=== PATIENT | female | born 1960 | race Caucasian/White ===

== ENCOUNTER → 2021-08-01 | Outpatient (CLI) | payer BC | LOC: MC.RAD 11:18 | DX: Z12.31 Encounter for screening mammogram for malignant neoplasm of breast (principal) ==

== ENCOUNTER → 2022-08-08 | Outpatient (CLI) | payer BC | LOC: MC.RAD 14:26 | DX: Z12.31 Encounter for screening mammogram for malignant neoplasm of breast (principal) ==

== ENCOUNTER → 2023-09-05 | Outpatient (CLI) | payer BC ==
[~2023-09-05] MED LIST: ADVIL LIQUI-GE200 MG PO; ASPIRIN 81M81 MG/TA2 PO; CALCIUM 600MG+D1 TAB PO; GLUCOPHAGE1000 MG PO; LIPITOR 40MG TA40 MG PO; NATURAL POTASS595 MG; OMEGA-3 FISH1000 MG PO; PRINIVIL10 MG PO; SYNTHROID0.112 MG/T PO; TRULICITY0.75 MG/0. SQ; TYLENOL 8 HR PO; VITAMIN D31000 IU PO; ZOFRAN 4MG T4 MG/TAB PO; ZYRTEC 10MG10 MG PO
== END ==
LOC: CANSCHCLI → MC.RAD 10:07
DX: Z12.31 Encounter for screening mammogram for malignant neoplasm of breast (principal)